=== PATIENT | female | born 1975 | race Asian ===

== ENCOUNTER 2023-04-29 20:07 | Emergency (ER) | payer OTHER, SELFPAY ==
[2023-04-29 20:18] VITALS: BP 103/79; PULSE 66; RESP 16; TEMP 35.9; O2SAT 97; BMI 20.6
[2023-04-29 20:24] VITALS: BP 103/79; PULSE 66; RESP 16; TEMP 35.9; O2SAT 97
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
--- NOTE | 2023-04-29 20:52 | CT_ITS ---
STUDY: CT CERVICAL SPINE WITHOUT CONTRAST REASON FOR EXAM: Female, 47 years old. Injury/Pain RADIATION DOSAGE (If Supplied By Facility): CTDIvol = ( 12.52 ) mGy, DLP = ( 246.14 ) mGycm TECHNIQUE: High resolution transaxial imaging was performed without contrast material. Sagittal and coronal images were reconstructed. Individualized dose optimization techniques were used for this CT. COMPARISON: None FINDINGS: Normal craniovertebral junction. Normal anterior atlantoaxial articulation. Normal odontoid process. Normal cervical lordosis. Normal vertebral bodies and posterior osseous elements. C2-3: Normal endplates. Normal disc height and morphology. Normal central canal and intervertebral neuroforamina. C3-4: Normal endplates. Normal disc height and morphology. Normal central canal and intervertebral neuroforamina. C4-5: Normal endplates. Normal disc height and morphology. Normal central canal and intervertebral neuroforamina. C5-6: Normal endplates. Normal disc height and morphology. Normal central canal and intervertebral neuroforamina. C6-7: Normal endplates. Normal disc height and morphology. Normal central canal and intervertebral neuroforamina. C7-T1: Normal endplates. Normal disc height and morphology. Normal central canal and intervertebral neuroforamina. Minor ossification of the nuchal ligament at C4 CT/Spine Cervical without Contras IMPRESSION: Normal unenhanced CT examination of the cervical spine. Electronically Signed: Harley Ann MD at 21:50 EST ,
[2023-04-29] MEDS: HYDROcodone Bitartrate/Apap 5/325 Tablet PO (21:04)
--- NOTE | 2023-04-29 21:35 | RAD_ITS ---
STUDY: X-RAY - RIGHT TIBIA AND FIBULA REASON FOR EXAM: Female, 47 years old. Injury/Pain TECHNIQUE: AP and lateral view(s) of the tibia and fibula were obtained. COMPARISON: None. FINDINGS: Normal visualized tibia. Normal visualized fibula. The soft tissue structures are unremarkable. RAD/Tibia & Fibula 2 Views IMPRESSION: Normal x-ray examination of the tibia and fibula. Electronically Signed: Harley Ann MD at 22:36 EST ,
--- NOTE | 2023-04-29 21:35 | RAD_ITS ---
STUDY: X-RAY STERNUM REASON FOR EXAM: Female, 47 years old. Trauma TECHNIQUE: 3 view(s) of the sternum were obtained. COMPARISON: None. FINDINGS: Normal bilateral sternoclavicular articulations. Normal manubrium. Normal sternomanubrial joint. Normal sternal body and xiphoid process. There is no demonstrated fracture of the sternum. Normal visualized anterior ribs. Normal visualized lungs. The soft tissue structures are unremarkable. RAD/Sternum min 2 Views IMPRESSION: Normal x-ray examination of the sternum. Electronically Signed: Harley Ann MD at 22:35 EST ,
[2023-04-29 23:09] VITALS: BP 139/94; PULSE 106; RESP 15; O2SAT 98
== END 2023-04-29 23:10 | disposition home or self-care (01) ==
PROVIDERS: Emergency Provider Emergency Medicine; Visit Provider Emergency Medicine
DX: S16.1XXA Strain of muscle, fascia and tendon at neck level, initial encounter (principal); S20.20XA Contusion of thorax, unspecified, initial encounter; M25.532 Pain in left wrist; S86.111A Strain of other muscle(s) and tendon(s) of posterior muscle group at lower leg level, right leg, initial encounter; V43.62XA Car passenger injured in collision with other type car in traffic accident, initial encounter
CPT/HCPCS: 71120; 72125; 73590; 99284